=== PATIENT | female | born 1975 | race Native Hawaiian/Other Pacific Islander ===

== ENCOUNTER → 2016-09-02 | Outpatient (CLI) | payer OTHER ==
--- NOTE | 2016-09-02 09:14 | REPMRS ---
Patient History The patient states she had a clinical breast exam in August 2016. No known family history of cancer. Retro-pectoral silicone gel implants in both breasts, October 07, 2015. Digital Mammo Screening Bilat: September 02, 2016 - Exam #: [id number] Bilateral CC and MLO view(s) were taken. Technologist: Kassandra Krishnan, Technologist No prior studies available for comparison. FINDINGS: There are scattered fibroglandular densities. The visualized implant margins are smooth. Breast parenchymal density pattern is essentially symmetric. No dominant mass, clustered microcalcification, or archetectural distortion is evident on either side. No significant changes when compared with prior studies. ASSESSMENT: BI-RADS/ACR category 2 mammogram. Benign finding(s). Recommendation Routine screening mammogram of both breasts in 1 year (for women over age 40). Electronically Signed By: Meng Houston MD 09/02/16 0913
== END ==
LOC: M RAD 08:28
PROVIDERS: ATTEND Advanced Practice Midwife
DX: Z12.31 Encounter for screening mammogram for malignant neoplasm of breast (principal); Z98.82 Breast implant status